=== PATIENT | male | born 1970 | race Caucasian/White ===

== ENCOUNTER → 2016-09-27 | Outpatient (CLI) | payer MEDICAID ==
--- NOTE | 2016-09-27 18:24 | DX ---
Thoracolumbar spine upright AP and lateral 1245 hours. History: Followup fusion. Fall on August 10, 2016. Findings: There is partial lumbarization of the S1 segment with a rudimentary S1-S2 disk. Pedicle screws and paraspinal rods are present from T10 through L3. There is mild to moderate anterio r wedge compression fracture of T12. There is also mild anterior wedging of superior endplate of L1. The remainder the vertebral body heights are well-maintained. Mild disk space narrowing is present at L4-L5 and L5-S1 without marginal osteophytes. There may been laminectomy at T12. No additional fract ures are appreciated. Impression: 1. Partial lumbarization of the S1 segment with a rudimentary S1-S2 disk. 2. Pedicle screws and paraspinal rods in good position from T10 through L3. 3. Mild to moderate anterior wedge compression fracture of T12 presumably related to trauma. 4. Mild anterior wedging of the superior endplate of L1 that could represent mild compression versus congenital wedging/normal variation.
== END ==
LOC: FIMAGING 12:30
DX: Z98.1 Arthrodesis status (principal); W19.XXXD Unspecified fall, subsequent encounter; S22.080D Wedge compression fracture of T11-T12 vertebra, subsequent encounter for fracture with routine healing; R93.8 Abnormal findings on diagnostic imaging of other specified body structures